=== PATIENT | female | born 1980 | race Caucasian/White ===

== ENCOUNTER 2024-04-18 11:43 | Day surgery (SDC) | payer OTHER ==
[2024-04-11 11:51] VITALS: BMI 23.6
[2024-04-18] MEDS ORDERED: LIDOCAINE HCL/PF 2% SDV 5ML VIAL ONE (12:59)
[2024-04-18] MEDS ORDERED: PROPOFOL 80 ML ONE (12:59)
[2024-04-18 13:26] VITALS: RESP 18; TEMP 97.3
[2024-04-18 14:01] VITALS: BP 109/50; PULSE 64
== END 2024-04-18 14:01 | disposition home or self-care (01) ==
LOC: FASU-ENDO 11:43
PROVIDERS: ATTEND Internal Medicine Gastroenterology
PROC: 0DJD8ZZ Inspection of Lower Intestinal Tract, Via Natural or Artificial Opening Endoscopic (ICD-10-PCS; principal; 2024-04-18 12:58)
DX: Z12.11 Encounter for screening for malignant neoplasm of colon (principal); K64.1 Second degree hemorrhoids
CPT/HCPCS: 81025